=== PATIENT | female | born 1975 | race Two or more races ===

== ENCOUNTER 2017-09-25 12:53 | Inpatient (IN) | payer OTHER ==
[~2017-09-25] VITALS: Ht 152.4 cm; Wt 56.2 kg
--- NOTE | 2017-09-25 13:15 | NUR ---
42 years old female presents to er c/o ruq pain nausea vomiting.
[2017-09-25] MEDS ORDERED: IV NS 1000 ML 1,000 ML IV ONE (13:30)
[2017-09-25] MEDS ORDERED: ONDANSETRON IV *ER 4 MG/2 ML VIAL IV ONE (13:30)
[2017-09-25] MEDS ORDERED: PANTOPRAZOLE SODIUM IV 40 MG in IV DEXTROSE 5% 100 ML IV ONE (13:30)
[2017-09-25 13:58] LABS: BASOPHILS # (AUTO) 0.4 K/uL (0.0-8.0); BASOPHILS % (AUTO) 2.9 % (0.0-2.0); EOSINOPHILS % (AUTO) 0.1 % (0.0-7.0); HEMOGLOBIN 13.9 G/DL (12.0-16.0); LYMPHOCYTES # (AUTO) 1.5 K/UL (0.8-4.8); LYMPHOCYTES % (AUTO) 12.4 % (20.5-51.5); MEAN CORPUSCULAR HEMOGLOBIN 28.8 UUG (27.0-31.0); MEAN CORPUSCULAR HGB CONC 33 g/dL (32.0-37.0); MEAN CORPUSCULAR VOLUME 87.1 FL (81.0-99.0); MONOCYTES # (AUTO) 1.3 K/UL (0.1-1.30); MONOCYTES % (AUTO) 10.6 % (0.0-11.0); NEUTROPHILS # (AUTO) 9.2 K/UL (1.8-8.9); PLATELET COUNT (AUTO) 274 K/UL (150-450); RED BLOOD CELL COUNT(AUTO) 4.82 MIL/UL (4.2-5.4); WHITE BLOOD COUNT (AUTO) 12.4 K/UL (4.0-11.2)
[2017-09-25] MEDS ORDERED: METRONIDAZOLE 500 MG/NS 100 ML PIGGYBACK IV ONE (14:15)
[2017-09-25] MEDS ORDERED: CIPROFLOXACIN IV 400 MG in PREMIXED 1 EACH IV SCH (14:15)
--- NOTE | 2017-09-25 14:19 | NUR ---
pt admit to med-surg Dx acute cholecystitis, Alex GRIFFIN.
--- NOTE | 2017-09-25 14:21 | NUR ---
room 203 RUSTY Robledo.
[2017-09-25 14:34] LABS: CREATININE 0.8 mg/dL (0.6-1.3); POTASSIUM 3.6 mmol/L (3.5-5.1); TOTAL PROTEIN, SERUM 7.5 g/dL (6.4-8.2)
[2017-09-25] MEDS ORDERED: PANTOPRAZOLE SODIUM 40 MG VIAL ONE ×2 (14:43→14:45)
[2017-09-25] MEDS ORDERED: ONDANSETRON 4 MG/2 ML VIAL ONE (14:43)
[2017-09-25] MEDS ORDERED: METRONIDAZOLE 500 MG/NS 100ML 100 ML IV ONE (14:44)
--- NOTE | 2017-09-25 14:52 | NUR ---
called nurse Robledo for report charge nurse Lida replied nurse is at lunch.
[2017-09-25] MEDS ORDERED: HYDROCODONE/APAP 5-325MG TABLET PO PRN (15:30)
[2017-09-25] MEDS ORDERED: HYDROMORPHONE 1 MG/1 ML DISP.SYRIN IV PRN (15:30)
[2017-09-25] MEDS ORDERED: Z GUARD REMEDY PASTE 57 GM TUBE TOP PRN (15:30)
[2017-09-25] MEDS ORDERED: MAGNESIUM HYDROXIDE 30 ML LIQUID UDC PO PRN (15:30)
[2017-09-25] MEDS ORDERED: IV NS 1000 ML 1,000 ML IV PRN (15:30)
[2017-09-25] MEDS ORDERED: METRONIDAZOLE 500 MG/NS 100ML 500 MG in PREMIXED 1 EACH IV SCH (15:30)
--- NOTE | 2017-09-25 15:56 | NUR ---
report given to nurse Meena all questions answered stable for transfer to unit.
[2017-09-25] MEDS ORDERED: CIPROFLOXACIN LACTATE/D5W 400 MG/200 ML PIGGYBACK IV ONE (16:06)
--- NOTE | 2017-09-25 16:35 | NUR ---
RECEIVED PATIENT FROM ED A 42 YEARS OLD FEMALE WITH DX OF CHOLECYSTITIS PLACED INTO BED FIXED AND MADE COMFORTABLE PATIENT IS ALERT AND ORIENTED STATED PAIN IS MINIMAL AT THIS TIME.ORIENTED TO THE FACILITY PROTOCOL AND THAT SHE SHOULD HAVE NOTHING TO EAT OR DRINK ORDERED PROVIDED HER WITH LEMON SWABS ABD SHE EXPRESSED UNDERSTANDING.SHE WAS RECEIVED WITH IV FLAGYL IN PROGRESS FROM THE ED IV SITE RIGHT ANTECUBITAL IS PATENT WITH NO S/S OF INFILTERATION ON SITE PATIENT MADE COMFORTABLE AND WILL CONTINUE TO OBSERVE.
--- NOTE | 2017-09-25 17:43 | NUR ---
CALL RECEIVED FROM DR VILLAFANA STATED TO GET CONSCENT FROM THE PATIENT AND THAT HE WILL SEE HER TOMORROW MORNING BEFORE SURGERY BETWEEN 10-1100
[2017-09-25 18:03] VITALS: BP 107/67
--- NOTE | 2017-09-25 18:55 | NUR ---
PATIENT HAD INFORMED ME THAT AFTER THE CIPRO IN THE ED DEPT SHE HAD A SMALL AMOUNT OF RED AREAS ON HER RIGHT ARM AND WAS GIVEN BENADRYL SO I CALLED THE RN JEANIE LAMB WHO GAVE ME REPORT BECAUSE IT WAS NOT DOCUMENTED THAT PATIENT RECEIVED BENADRYL TO CONFIRM AND SHE STATED THAT YES SHE DID GIVE HER BENADRYL AND THAT THE REDNESS WAS VERY MINIMAL ONLY ON THE RIGHT ARM THE IV SITE.WILL ENDORSE AND WILL OBSERVE PATIENT TO SEE IF THIS IS A TRUE ALLERGIC REACTION.
[2017-09-25 19:00] VITALS: BP 103/58
[2017-09-25] MEDS ORDERED: diphenhydrAMINE 50 MG/1 ML VIAL IV ONE (19:00)
--- NOTE | 2017-09-25 19:01 | NUR ---
late entry pt c/o itch with cipro, redness at bedside benadryl 12.5 mg iv given with good effect at 1600.
--- NOTE | 2017-09-25 20:00 | NUR ---
RECEIVED IN BED A/OX4. P;AN OF CARE DISCUSSED, PT UNDERSTOOD. C/O SEVERE ABD PAIN 8/10 ON THE PAIN SCALE, WILL MEDICATE ORDER. NO N/V AT TTIS TIME.
[2017-09-25] MEDS: HYDROMORPHONE 4 MG/1 ML DISP.SYRIN IV PRN (20:52)
[2017-09-25] MEDS: METRONIDAZOLE 500 MG/NS 100ML 500 MG in PREMIXED 1 EACH IV SCH (22:00)
[2017-09-25] MEDS: CIPROFLOXACIN IV 400 MG in PREMIXED 1 EACH IV SCH (22:01)
[2017-09-25] MEDS: ONDANSETRON 4 MG/2 ML VIAL IV PRN (23:49)
[2017-09-26] VITALS (7 sets, daily range): BP systolic 97–111; BP diastolic 49–67
[2017-09-26] MEDS: METRONIDAZOLE 500 MG/NS 100ML 500 MG in PREMIXED 1 EACH IV SCH ×3 (06:54→22:09)
[2017-09-26] MEDS: HYDROMORPHONE 4 MG/1 ML DISP.SYRIN IV PRN ×3 (06:54→17:20)
[2017-09-26] MEDS ORDERED: HYDROMORPHONE 4 MG/1 ML DISP.SYRIN ONE (06:58)
[2017-09-26 07:00] LABS: BASOPHILS % (AUTO) 0.3 % (0.0-2.0); HEMATOCRIT 36.4 % (31.2-41.9); HEMOGLOBIN 12.4 g/dL (10.9-14.3); LYMPHOCYTES # (AUTO) 1.3 K/uL (20.0-40.0); LYMPHOCYTES % (AUTO) 12.8 % (20.5-51.5); MEAN CORPUSCULAR HEMOGLOBIN 29.8 uug (24.7-32.8); MEAN CORPUSCULAR HGB CONC 34 g/dL (32.3-35.6); MEAN CORPUSCULAR VOLUME 87.7 fL (75.5-95.3); MONOCYTES # (AUTO) 1.7 K/uL (2.0-10.0); MONOCYTES % (AUTO) 16.6 % (0.0-11.0); NEUTROPHILS # (AUTO) 7.2 K/uL (1.8-8.9); NEUTROPHILS % (AUTO) 70.3 % (38.5-71.5); PLATELET COUNT (AUTO) 232 K/uL (179-408); RED BLOOD CELL COUNT(AUTO) 4.15 MIL/uL (3.63-4.92); WHITE BLOOD COUNT (AUTO) 10.2 K/uL (3.8-11.8)
[2017-09-26] MEDS: PANTOPRAZOLE SODIUM 40 MG TABLET.DR PO SCH (07:00)
[2017-09-26 07:23] LABS: BILIRUBIN,TOTAL 3.2 mg/dL (0.2-1.0); CREATININE 0.6 mg/dL (0.6-1.3); MAGNESIUM 2.1 mg/dL (1.8-2.4); PHOSPHOROUS 2.8 mg/dL (2.5-4.9); POTASSIUM 3.8 mmol/L (3.5-5.1); TOTAL PROTEIN, SERUM 6.6 g/dL (6.4-8.2)
[2017-09-26 07:27] LABS: THYROID STIMULATING HORMONE 0.866 mIU/mL (0.358-3.740)
--- NOTE | 2017-09-26 07:30 | NUR ---
RECEIVED PATIENT AWAKE ALERT ORIENTED DENIES PAIN OR DISCOMFORTS AT THIS TIME.REMAIN NOTHING BY MOUTH ORDERED NO ADVERSE OR ALLERGIC REACTIONS NOTED ANTIBIOTICS ORDERED HER FAMILY IS AT THE BEDSIDE AT THIS TIME NOT IN DISTRESS.
[2017-09-26] MEDS: CIPROFLOXACIN IV 400 MG in PREMIXED 1 EACH IV SCH ×2 (08:35→20:28)
[2017-09-26] MEDS ORDERED: PANTOPRAZOLE SODIUM 40 MG VIAL IV SCH (09:00)
[2017-09-26] MEDS ORDERED: BUPIVACAINE/EPI PF 0.25% 30 ML VIAL ONE (09:28)
[2017-09-26] MEDS ORDERED: ROCURONIUM BROMIDE 50 MG/5 ML VIAL ONE (09:36)
[2017-09-26] MEDS ORDERED: HYDROMORPHONE 2 MG/1 ML DISP.SYRIN ONE (09:36)
[2017-09-26 09:41] LABS: BAND % (MANUAL) 2 % (0-10); LYMPHOCYTES % (MANUAL) 10 % (20-40); MONOCYTES % (MANUAL) 13 % (2-10); NEUTROPHILS % (MANUAL) 75 % (42-75)
--- NOTE | 2017-09-26 09:45 | NUR ---
PATIENT PICKED UP BY BED TO OPERATING ROOM ORDERED WITH HER AND MOTHER AT THE BEDSIDE AND FOLLOWING.
[2017-09-26] MEDS ORDERED: SUCCINYLCHOLINE CHLORIDE 200 MG/10 ML VIAL ONE (10:13)
[2017-09-26] MEDS ORDERED: SEVOFLURANE 250 ML BOTTLE IH ONE (12:08)
[2017-09-26] MEDS ORDERED: DEXAMETHASONE SOD PHOSPHATE 4 MG INJ IV ONE (12:08)
[2017-09-26] MEDS ORDERED: NEOSTIGMINE METHYLSULFATE 10 MG/10 ML VIAL IV ONE (12:08)
[2017-09-26] MEDS ORDERED: GLYCOPYRROLATE 0.2 MG/ML VIAL MC ONE (12:08)
[2017-09-26] MEDS ORDERED: PROPOFOL 200 MG/20 ML BOTTLE IV ONE (12:08)
[2017-09-26] MEDS ORDERED: IV NORMAL SALINE 1000 ML BAG IV ONE (12:08)
[2017-09-26] MEDS ORDERED: ONDANSETRON 4 MG/2 ML VIAL IV ONE (12:08)
[2017-09-26] MEDS ORDERED: LIDOCAINE HCL 2% 20 ML VIAL MC ONE (12:08)
[2017-09-26] MEDS ORDERED: KETOROLAC TROMETHAMINE 30 MG INJ IM ONE (12:12)
[2017-09-26] MEDS ORDERED: FENTANYL CITRATE 100 MCG/2 ML AMPUL ONE (12:28)
[2017-09-26] MEDS ORDERED: HYDROMORPHONE 1 MG/1 ML DISP.SYRIN ONE (13:06)
--- NOTE | 2017-09-26 13:25 | NUR ---
PATIENT RETURNED FROM OR AWAKE ALERT AND ORIENTED ON ROOM AIR WITH NO SHORTNESS OF BREATH AT THIS TIME.RECEIVED WITH IVF OF D5I/2 NS AT 75 ML/HR VIA THE RIGHT ANTECUBITAL WITH NO S/S OF INFILTERATION AT THIS TIME.ABDOMEN WITH 3 SCOPE SITES AND A MYKEL GRIFFIN SITE WITH GAUZE DRESSING WITH SOME SEROUS DRAINAGE AT THIS TIME.
--- NOTE | 2017-09-26 14:23 | NUR ---
CALLED AND SPOKE WITH DR VILLAFANA RE PATIENT IS COMPLAINING OF PAIN AND I AM UNABLE TO GIVE HER DUE TO FREQUENCY WITH NEW ORDERS AND NOTED.
[2017-09-26] MEDS ORDERED: MORPHINE SULFATE 2 MG/1 ML DISP.SYRIN IV PRN (14:30)
[2017-09-26] MEDS ORDERED: OXYCODONE/APAP 5-325 MG TABLET PO PRN (14:30)
[2017-09-26] MEDS ORDERED: MORPHINE SULFATE 4 MG/1 ML DISP.SYRIN IM PRN (14:30)
[2017-09-26] MEDS ORDERED: HYDROMORPHONE 4 MG/1 ML DISP.SYRIN IV PRN (14:45)
[2017-09-26] MEDS ORDERED: ZOLPIDEM 5 MG TABLET PO PRN (14:45)
--- NOTE | 2017-09-26 14:45 | NUR ---
PATIENT WAS MEDICATED WITH DILAUDID BECAUSE PER PHARMACY THE MORPHINE ORDERED BY DR VILLAFANA WAS CHANGED DUE TO NON AVAILABILITY OF MORPHINE
--- NOTE | 2017-09-26 18:10 | NUR ---
RESTING HAS NO APPETITE TO EAT BUT ORAL DRINKING JELLO ETC HAS BEEN ADEQUATE.
--- NOTE | 2017-09-26 18:25 | NUR ---
DRESSING TO CARLOS A SITE CHANGE SECONDARY TO BLOODY FLUID AND GAUZE WET.SECURED WITH TRANSPARENT DRESSING PATIENT MADE COMFORTABLE.
--- NOTE | 2017-09-26 19:45 | NUR ---
RECEIVED PATIENT AWAKE IN BED WITH FAMILY AT BEDSIDE. IV HEPLOCK NOTED TO RIGHT AC, INFILTRATED. REMOVED AND ARM ELEVATED ON PILLOW, WARM COMPRESS APPLIED TO AFFECTED AREA. PATIENT DENIES PAIN AT THIS TIME. CARLOS A INTACT. ON O2 2L NC SATING WELL. NO RESP. DISTRESS NOTED. DVT PUMPS IN PLACE. CALL LIGHT IN REACH. ALL NEEDS ATTENDED. WILL CONTINUE TO MONITOR.
[2017-09-26] MEDS: ONDANSETRON 4 MG/2 ML VIAL IV PRN (20:05)
--- NOTE | 2017-09-26 20:05 | NUR ---
NEW IV HEPLOCK STARTED TO LEFT FA. IVF INFUSING ORDERED. PATIENT C/O NAUSEA. GIVEN ZOFRAN 4MG IV PER METER TECHNICIAN. CALL LIGHT IN REACH. ALL NEEDS ATTENDED. WILL CONTINUE TO MONITOR.
--- NOTE | 2017-09-26 21:45 | NUR ---
PATIENT DOZING ON AND OFF IN BED. NO C/O NAUSEA AT THIS TIME. WILL CONTINUE TO MONITOR.
--- NOTE | 2017-09-27 | NUR ---
PATIENT ASLEEP. APPEARS TO BE RESTING COMFORTABLY. NO RESP. DISTRESS NOTED. CALL LIGHT IN REACH. ALL NEEDS ATTENDED. WILL CONTINUE TO MONITOR.
[2017-09-27] MEDS: POTASSIUM CHLORIDE 20 MEQ in IV D5 1/2 NS 1000 ML 1,000 ML IV PRN ×2 (01:30→17:23)
[2017-09-27 04:00] VITALS: BP 95/53
[2017-09-27] MEDS: ONDANSETRON 4 MG/2 ML VIAL IV PRN ×3 (04:37→17:41)
[2017-09-27] MEDS: HYDROMORPHONE 4 MG/1 ML DISP.SYRIN IV PRN ×4 (04:38→21:11)
--- NOTE | 2017-09-27 04:40 | NUR ---
PATIENT AWAKE IN BED. PATIENTS BLOOD PRESSURE 95/53. PATIENT C/O PAIN IN ABDOMEN. PATIENT GIVEN DILAUDID 0.5MG IV AND ZOFRAN 4MG IV PRN PER PRESS CLIPPER. IVF INFUSING WELL TO LEFT HAND. CALL LIGHT IN REACH. ALL NEEDS ATTENDED. WILL CONTINUE TO MONITOR.
[2017-09-27] MEDS: METRONIDAZOLE 500 MG/NS 100ML 500 MG in PREMIXED 1 EACH IV SCH ×3 (05:36→21:11)
[2017-09-27] MEDS: PANTOPRAZOLE SODIUM 40 MG TABLET.DR PO SCH (06:01)
[2017-09-27 06:26] LABS: BASOPHILS % (AUTO) 0.3 % (0.0-2.0); EOSINOPHILS % (AUTO) 0.1 % (0.0-7.0); HEMATOCRIT 32.1 % (31.2-41.9); HEMOGLOBIN 10.9 g/dL (10.9-14.3); LYMPHOCYTES # (AUTO) 1.7 K/uL (20.0-40.0); LYMPHOCYTES % (AUTO) 16.5 % (20.5-51.5); MEAN CORPUSCULAR HEMOGLOBIN 29.8 uug (24.7-32.8); MEAN CORPUSCULAR HGB CONC 34 g/dL (32.3-35.6); MEAN CORPUSCULAR VOLUME 87.9 fL (75.5-95.3); MONOCYTES # (AUTO) 1.1 K/uL (2.0-10.0); MONOCYTES % (AUTO) 10.6 % (0.0-11.0); NEUTROPHILS # (AUTO) 7.3 K/uL (1.8-8.9); NEUTROPHILS % (AUTO) 72.5 % (38.5-71.5); PLATELET COUNT (AUTO) 206 K/uL (179-408); RED BLOOD CELL COUNT(AUTO) 3.65 MIL/uL (3.63-4.92); WHITE BLOOD COUNT (AUTO) 10.1 K/uL (3.8-11.8)
[2017-09-27 06:52] LABS: BILIRUBIN,TOTAL 1.2 mg/dL (0.2-1.0); CREATININE 0.6 mg/dL (0.6-1.3); POTASSIUM 3.8 mmol/L (3.5-5.1); TOTAL PROTEIN, SERUM 6.1 g/dL (6.4-8.2)
--- NOTE | 2017-09-27 09:02 | NUR ---
CALL RECEIVED FROM DR VILLAFANA RE STATUS OF THE PATIENT INFORMED HIM THAT THE DRESSINGS WAS CHANGED RELATED TO DRAINAGE AND HE STATED TO CONTINUE TO CHANGE NEEDED AND THAT HE WILL BE HERE TO SEE THE PATIENT LATER IN THE DAY.PATIENT WAS MEDICATED WITH PAIN MEDICATIONS ORDERED AND HELPFUL.
[2017-09-27] MEDS: CIPROFLOXACIN IV 400 MG in PREMIXED 1 EACH IV SCH ×2 (09:16→20:35)
[2017-09-27 11:03] VITALS: BP 98/58
--- NOTE | 2017-09-27 12:20 | NUR ---
UP OUT OF BED ASSISTED WITH CLEAN UP IN THE BATHROOM AND ASSISTED WITH AMBULATING IN THE HALLWAY WITH SLOW STEADY GAIT WITH FAIR ENDURANCE.BACK TO BED AT THIS TIME.
[2017-09-27 15:05] VITALS: BP 103/55
--- NOTE | 2017-09-27 16:28 | NUR ---
patient seen and examined by dr hernandez with new orders and noted.
--- NOTE | 2017-09-27 18:53 | NUR ---
DRESSING CHANGED TO HER CARLOS A SITE WITH DRY DRESSING COVERED WITH TRANSPARENT TEGARDERM AND SECURED WITH PAPER TAPE PATIENT MADE COMFORTABLE FAMILY AT THE BEDSIDE AT THIS TIME WILL CONTINUE TO OBSERVENO ADVERSE OR ALLERGIC REACTIONS FROM ANTIBIOTICS ORDERED
[2017-09-27 19:10] VITALS: BP 113/73
--- NOTE | 2017-09-27 20:00 | NUR ---
RECEIVED PATIENT AWAKE IN BED WITH FAMILY AT BEDSIDE. PATIENT IS A/OX4. NO C/O PAIN AT THIS TIME, STATED DISCOMFORT BUT DENIES THE NEED FOR ANY PAIN MEDICATION AT THIS TIME. ON RA SATING WELL. NO RESP. DISTRESS NOTED. IVF INFUSING WELL TO LEFT HAND #22 GAUGE. CARLOS A SITE INTACT. SURGICAL INCISIONS X3 NOTED, DRESSINGS CLEAN, DRY AND INTACT. BILATERAL DVT PUMPS IN PLACE. CALL LIGHT IN REACH. ALL NEEDS ATTENDED. WILL CONTINUE TO MONITOR AND ASSESS.
--- NOTE | 2017-09-27 21:10 | NUR ---
PATIENT C/O PAIN IN ABDOMEN. GIVEN DILAUDID 0.5MG IV PER OIL PRODUCER. VS WNL. CALL LIGHT IN REACH. ALL NEEDS ATTENDED. WILL CONTINUE TO MONITOR AND ASSESS.
--- NOTE | 2017-09-27 21:40 | NUR ---
PATIENT ASLEEP. APPEARS TO BE RESTING COMFORTABLY. CALL LIGHT IN REACH. ALL NEEDS ATTENDED. WILL CONTINUE TO MONITOR AND ASSESS.
[2017-09-28 04:00] VITALS: BP 110/67
[2017-09-28] MEDS: METRONIDAZOLE 500 MG/NS 100ML 500 MG in PREMIXED 1 EACH IV SCH (05:11)
[2017-09-28] MEDS: ONDANSETRON 4 MG/2 ML VIAL IV PRN ×3 (05:38→23:45)
[2017-09-28] MEDS: HYDROMORPHONE 4 MG/1 ML DISP.SYRIN IV PRN ×3 (05:38→23:45)
[2017-09-28] MEDS: POTASSIUM CHLORIDE 20 MEQ in IV D5 1/2 NS 1000 ML 1,000 ML IV PRN ×2 (05:39→23:33)
--- NOTE | 2017-09-28 05:43 | NUR ---
PATIENT RESTING IN BED. C/O PAIN. GIVEN DILAUDID 0.5MG IV PRN AND ZOFRAN 4MG IV PRN PER PHYSIC[facility]. EMPTIED A TOTAL OF 95cc FROM CARLOS A FOR THE WHOLE NIGHT. DRESSINGS C/D/I. SLEPT WELL THROUGHOUT THE NIGHT. IVF INFUSING WELL ORDERED. ON RA SATING 100%. ALL VSS. AFEBRILE. CALL LIGHT IN REACH. ALL NEEDS ATTENDED. WILL CONTINUE TO MONITOR.
[2017-09-28] MEDS: PANTOPRAZOLE SODIUM 40 MG TABLET.DR PO SCH (06:33)
[2017-09-28 07:25] LABS: BILIRUBIN,TOTAL 0.7 mg/dL (0.2-1.0); CREATININE 0.7 mg/dL (0.6-1.3); POTASSIUM 4.2 mmol/L (3.5-5.1); TOTAL PROTEIN, SERUM 6.2 g/dL (6.4-8.2)
--- NOTE | 2017-09-28 08:15 | NUR ---
PATIENT IS AWAKE ALERT AND ORIENTED DENIES PAIN OR DISCOMFORTS AT THIS TIME.REMAIN ON IVF ORDERED AND IVATB WITH NO ADVERSE OR ALLERGIC REACTIONS AT TIME.REMAIN ON ROOM AIR WITH NO SHORTNESS OF BREATH CARLOS A REMAIN INTACT WITH GREENISH BROWN DRAINAGE WITH DRESSING INTACT AROUND THE CARLOS A SITE INCENTIVE SPIROMETER AND AMBULATION ENCOURAGED AND SHE EXPRESSED UNDERSTANDING.
[2017-09-28 08:27] LABS: BASOPHILS % (AUTO) 0.5 % (0.0-2.0); EOSINOPHILS # (AUTO) 0.1 K/uL (0.0-0.7); EOSINOPHILS % (AUTO) 0.8 % (0.0-7.0); HEMATOCRIT 33.7 % (37-47); LYMPHOCYTES # (AUTO) 1.5 K/UL (0.8-4.8); LYMPHOCYTES % (AUTO) 21.5 % (20.5-51.5); MEAN CORPUSCULAR HEMOGLOBIN 28.9 UUG (27.0-31.0); MEAN CORPUSCULAR HGB CONC 33 g/dL (32.0-37.0); MEAN CORPUSCULAR VOLUME 88.4 FL (81.0-99.0); MONOCYTES # (AUTO) 0.6 K/UL (0.1-1.30); MONOCYTES % (AUTO) 7.9 % (0.0-11.0); NEUTROPHILS % (AUTO) 69.3 % (38.5-71.5); PLATELET COUNT (AUTO) 288 K/UL (150-450); RED BLOOD CELL COUNT(AUTO) 3.81 MIL/UL (4.2-5.4); WHITE BLOOD COUNT (AUTO) 7.2 K/UL (4.0-11.2)
[2017-09-28] MEDS: CIPROFLOXACIN IV 400 MG in PREMIXED 1 EACH IV SCH (08:36)
--- NOTE | 2017-09-28 10:00 | NUR ---
PATIENT SEEN AND EXAMINED BY DR VILLAFANA NOTED HIS DOCUMENTATION OF GI CONSULTATION FOR THE PATIENT FOR POSSIBLE ERCP
[2017-09-28 11:29] VITALS: BP 107/66
--- NOTE | 2017-09-28 11:54 | NUR ---
IV SITE INFILTERATED RESTARTED TO HER RIGHT WRIST WITH ONE ATTEMPT AND CONTINUE WITH IVF ORDERED PATIENT TOLERATED PROCEDURE WELL NO ADVERSE OR ALLERGIC REACTIONS FROM ATB ORDERED.
[2017-09-28] MEDS: METRONIDAZOLE 500 MG TABLET PO SCH ×2 (15:10→22:48)
[2017-09-28 15:38] VITALS: BP 121/64
[2017-09-28 15:42] VITALS: BP 138/60
--- NOTE | 2017-09-28 15:57 | NUR ---
PATIENT HAS ONE EMESIS AND SEVERE PAIN MEDICATED WITH ZOFRAN AND DILAUDID ORDERED MADE COMFORTABLE.
--- NOTE | 2017-09-28 18:00 | NUR ---
RESTING AT THIS TIME FEELS COMFORTABLE WITH IVF ORDERED SHE IS AMBULATING IN HER ROOM BUT STATED DOES NOT FEEL LIKE GOING IN THE HALLWAY AT THIS TIME.WILL CONTINUE TO EDUCATE PATIENT ON THE IMPORTANCE OF WALKING AND USING THE INCENTIVE SPIROMETER AND SHE EXPRESSED UNDERSTANDING.
--- NOTE | 2017-09-28 18:41 | NUR ---
MYKEL GRIFFIN EMPTIED AND ITS 80 ML AND ITS YELLOWISH WITH SOME RED TINGED PATIENT EDUCATED ON MANAGEMENT AND EMPTYING OF THE MYKEL GRIFFIN AND THE USE OF INCENTIVE SPIROMETER AND SHE EXPRESSED UNDERSTANDING.
[2017-09-28 20:00] VITALS: BP 116/63
--- NOTE | 2017-09-28 20:00 | NUR ---
RECEIVED PATIENT AWAKE IN BED. A/O X4. NO C/O PAIN AT THIS TIME. ON RA SATING 98-100%. CARLOS A INTACT. DRESSINGS INTACT. IVF INFUSING WELL TO RIGHT AC #20 GAUGE. VSS. AFEBRILE. PATIENT ENCOURAGED TO AMBULATE IN HALLWAY. CALL LIGHT IN REACH. ALL NEEDS ATTENDED. WILL CONTINUE TO MONITOR.
--- NOTE | 2017-09-28 20:30 | NUR ---
PATIENT OOB AND AMBULATING IN HALLWAY.
[2017-09-28] MEDS: CIPROFLOXACIN HCL 250 MG TABLET PO SCH (20:52)
--- NOTE | 2017-09-28 23:30 | NUR ---
PATIENTS DRESSING AROUND CARLOS A SITE, SATURATED. CLEANED AREA AND APPLIED DRY, STERILE DRESSING. PATIENT C/O PAIN. GIVEN DILAUDID 0.5MG IV AND ZOFRAN 4MG IV PER RN. VS WNL. CALL LIGHT IN REACH. ALL NEEDS ATTENDED. WILL CONTINUE TO MONITOR
--- NOTE | 2017-09-29 01:00 | NUR ---
PATIENT ASLEEP IN BED. NO RESP. DISTRESS NOTED. NO S/S OF PAIN OR DISCOMFORT. CALL LIGHT IN REACH. ALL NEEDS ATTENDED.
[2017-09-29] MEDS: PANTOPRAZOLE SODIUM 40 MG TABLET.DR PO SCH (06:02)
[2017-09-29] MEDS: METRONIDAZOLE 500 MG TABLET PO SCH ×3 (06:02→21:48)
[2017-09-29 06:20] VITALS: BP 119/80
[2017-09-29] MEDS: OXYCODONE/APAP 5-325 MG TABLET PO PRN (06:25)
--- NOTE | 2017-09-29 06:25 | NUR ---
PATIENT AWAKE IN BED. C/O PAIN. PATIENT GIVEN PERCOCET 1 TAB PO PRN FOR PAIN. SLEPT AT INTERVALS. DRESSINGS C/D/I. IVF INFUSING WELL. CALL LIGHT IN REACH. ALL NEEDS ATTENDED. WILL CONTINUE TO MONITOR.
--- NOTE | 2017-09-29 07:25 | NUR ---
Received client in bed awake alert and oriented time 4. Able to express needs, ambulatory. Expresses concern over GP
[2017-09-29] MEDS: CIPROFLOXACIN HCL 250 MG TABLET PO SCH ×2 (08:17→21:48)
--- NOTE | 2017-09-29 09:40 | NUR ---
Report received.Pt remains awake,alert.C/o severe abdominal pain,nausea.Medicated with Zofran 4mg IV,Dilaudid 0.5 mg IV.Will continue to monitor.
[2017-09-29] MEDS: HYDROMORPHONE 4 MG/1 ML DISP.SYRIN IV PRN (09:52)
[2017-09-29] MEDS: ONDANSETRON 4 MG/2 ML VIAL IV PRN (09:52)
--- NOTE | 2017-09-29 11:00 | NUR ---
Seen,examined by .Updated on pt condition.
[2017-09-29 11:33] LABS: BILIRUBIN,DIRECT 0.3 mg/dL (0.0-0.2); BILIRUBIN,TOTAL 0.7 mg/dL (0.2-1.0); TOTAL PROTEIN, SERUM 6.5 g/dL (6.4-8.2)
[2017-09-29 12:00] VITALS: BP 114/72
--- NOTE | 2017-09-29 12:00 | NUR ---
Seen,examined by DESIGN PROJECT MANAGER for .New orders received.
--- NOTE | 2017-09-29 15:00 | NUR ---
Spoke with regarding pt is going for ERCP at 1830 today.Updated on pt condition.
[2017-09-29] MEDS ORDERED: NEOSTIGMINE METHYLSULFATE 10 MG/10 ML VIAL IV ONE (15:14)
[2017-09-29] MEDS ORDERED: LIDOCAINE HCL 2% 20 ML VIAL MC ONE (15:14)
[2017-09-29] MEDS ORDERED: IV NORMAL SALINE 1000 ML BAG IV ONE (15:14)
[2017-09-29] MEDS ORDERED: SEVOFLURANE 250 ML BOTTLE IH ONE (15:14)
[2017-09-29] MEDS ORDERED: PROPOFOL 200 MG/20 ML BOTTLE IV ONE (15:14)
[2017-09-29] MEDS ORDERED: ONDANSETRON 4 MG/2 ML VIAL IV ONE (15:14)
[2017-09-29] MEDS ORDERED: GLYCOPYRROLATE 0.2 MG/ML VIAL MC ONE (15:14)
[2017-09-29 16:06] VITALS: BP 104/60
[2017-09-29] MEDS ORDERED: IOHEXOL-240 MG , 50 ML VIAL IV ONE (18:19)
[2017-09-29] MEDS ORDERED: FENTANYL CITRATE 250 MCG/5 ML AMPUL ONE (18:56)
[2017-09-29] MEDS ORDERED: SUCCINYLCHOLINE CHLORIDE 200 MG/10 ML VIAL ONE (18:57)
[2017-09-29] MEDS ORDERED: MIDAZOLAM HCL 2 MG/2 ML VIAL ONE (18:57)
[2017-09-29] MEDS ORDERED: ROCURONIUM BROMIDE 50 MG/5 ML VIAL ONE (18:57)
[2017-09-29] MEDS ORDERED: INDOMETHACIN 50 MG SUPP.RECT RC ONE (19:17)
[2017-09-29] MEDS ORDERED: MORPHINE SULFATE 4 MG/1 ML DISP.SYRIN IV PRN (19:30)
--- NOTE | 2017-09-29 20:35 | NUR ---
PT RECEIVED BACK FROM ERCP PROCEDURE. A/OX3. AT BEDSIDE. V/S STABLE. IN NO ACUTE DISTRESS. C/O ABDOMINAL PAIN 08/01. WILL ADMIN PAIN MEDICATIONS ORDERED. IV INTACT AND PATENT. ON RA, TOLERATING WELL. ABDOMINAL BINDER IN PLACE. CARLOS A DRAIN INTACT AND PATENT. SAFETY MEASURES IMPLEMENTED. CALL LIGHT WITHIN REACH.
[2017-09-29 20:43] VITALS: BP 114/70
[2017-09-29] MEDS: MORPHINE SULFATE 4 MG/1 ML DISP.SYRIN IV PRN (21:45)
[2017-09-30] MEDS: MORPHINE SULFATE 4 MG/1 ML DISP.SYRIN IV PRN ×2 (03:47→06:14)
[2017-09-30] MEDS: ONDANSETRON 4 MG/2 ML VIAL IV PRN ×3 (03:53→21:32)
[2017-09-30] MEDS: OXYCODONE/APAP 5-325 MG TABLET PO PRN (04:23)
[2017-09-30] MEDS: METRONIDAZOLE 500 MG TABLET PO SCH ×3 (06:04→21:33)
[2017-09-30] MEDS: PANTOPRAZOLE SODIUM 40 MG TABLET.DR PO SCH (06:04)
--- NOTE | 2017-09-30 06:15 | NUR ---
END OF SHIFT NOTES. PT SLEPT INTERMITTENTLY THROUGHOUT SHIFT. IN STABLE CONDITION. IVF INFUSING. ON RA, TOLERATING WELL. PT C/O ABDOMINAL PAIN, ADMINISTERED PAIN MEDICATION ORDERED. CARLOS A DRAIN OUTPUT 75CC. INTACT AN PATENT. DRAINAGE EMPTIED. ABDOMINAL BINDER IN PLACE. SURGICAL SITE C/D/I. ALL NEEDS ATTENDED. SAFETY MAINTAINED. CALL LIGHT WITHIN REACH.
[2017-09-30 06:16] VITALS: BP 103/59
--- NOTE | 2017-09-30 06:40 | NUR ---
UNABLE TO CHART ON IV SPREADSHEET. IVF CHARTED ON OTHER INPUT. 800CC INPUT.
[2017-09-30] MEDS: CIPROFLOXACIN HCL 250 MG TABLET PO SCH ×2 (08:30→21:33)
[2017-09-30] MEDS ORDERED: HYDROMORPHONE 1 MG/1 ML DISP.SYRIN IV PRN (08:45)
--- NOTE | 2017-09-30 08:45 | NUR ---
PATIENT IS HAVING SO MUCH PAIN OFFERED TO GIVE HER MORPHINE ORDERED FOR HER BUT SHE STATED THAT THE MORPHINE LUCY NOT HELP HER SO I CALLED AND SPOKE WITH DR BANEGAS WITH ORDER TO GIVE HER DILAUDID ORDERS RECEIVED AND CARRIED OUT.
[2017-09-30] MEDS: HYDROMORPHONE 4 MG/1 ML DISP.SYRIN IV PRN ×3 (09:14→21:31)
[2017-09-30] MEDS: POTASSIUM CHLORIDE 20 MEQ in IV D5 1/2 NS 1000 ML 1,000 ML IV PRN ×2 (09:15→23:48)
--- NOTE | 2017-09-30 10:41 | NUR ---
PATIENT SEEN BY DR VILLAFANA WITH NEW ORDERS AND NOTED HE IS AWARE THAT PATIENT IS STILL IN SEVERE PAIN THIS TIME LEFT SIDE OF THE ABDOMEN AND LEFT SHOULDER.
[2017-09-30 11:35] VITALS: BP 103/70
[2017-09-30 12:09] LABS: BASOPHILS % (AUTO) 0.1 % (0.0-2.0); EOSINOPHILS % (AUTO) 0.1 % (0.0-7.0); HEMATOCRIT 36.1 % (31.2-41.9); HEMOGLOBIN 12.4 g/dL (10.9-14.3); LYMPHOCYTES % (AUTO) 8.5 % (20.5-51.5); MEAN CORPUSCULAR HEMOGLOBIN 30.1 uug (24.7-32.8); MEAN CORPUSCULAR HGB CONC 34 g/dL (32.3-35.6); MEAN CORPUSCULAR VOLUME 87.6 fL (75.5-95.3); MONOCYTES # (AUTO) 0.8 K/uL (2.0-10.0); MONOCYTES % (AUTO) 6.8 % (0.0-11.0); NEUTROPHILS # (AUTO) 10.2 K/uL (1.8-8.9); NEUTROPHILS % (AUTO) 84.5 % (38.5-71.5); PLATELET COUNT (AUTO) 321 K/uL (179-408); RED BLOOD CELL COUNT(AUTO) 4.12 MIL/uL (3.63-4.92); WHITE BLOOD COUNT (AUTO) 12.1 K/uL (3.8-11.8)
[2017-09-30 16:00] VITALS: BP 104/70
--- NOTE | 2017-09-30 17:50 | NUR ---
UP AND AMBULATORY IN THE HALLWAY WITH SLOW STEADY GAIT WITH IVF IN PROGRESS ORDERED WITH NO ADVERSE OR ALLERGIC REACTIONS AT THIS TIME.WILL CONTINUE TO OBSERVE.
--- NOTE | 2017-09-30 18:30 | NUR ---
DR MANZOOVS NOTE STATED TO ADVANCE TOLERATED DIET ADVANCED TO FULL LIQUIDS AND PATIENT NOTIFIED.
--- NOTE | 2017-09-30 19:30 | NUR ---
PT RECEIVED IN BED, AWAKE. FAMILY AT BEDSIDE. A/OX3. ABLE TO MAKE NEEDS KNOWN. V/S STABLE. IN NO ACUTE DISTRESS. PT C/O ABDOMINAL PAIN 08/01. IVF INFUSING. WILL ADMINISTER PAIN MEDICATION ORDERED, ALONG WITH ZOFRAN PER PT REQUEST DUE TO NAUSEA. ON RA, TOLERATING WELL. SAFETY MEASURES IMPLEMENTED. CALL LIGHT WITHIN REACH.
--- NOTE | 2017-09-30 19:35 | NUR ---
PT CARLOS A DRAIN INTACT AND PATENT. SURGICAL SITE C/D/I.
[2017-09-30 20:00] VITALS: BP 100/58
--- NOTE | 2017-10-01 | NUR ---
PT CARLOS A DRAINAGE SITE FOUND SOAKED WITH SEROUS FLUID. DRESSING CHANGED AND REINFORCED. WILL CONT TO MONITOR
--- NOTE | 2017-10-01 05:00 | NUR ---
PT SEEN WITH FEVER OF 101.4. WILL ADMIN ANTIPYRETIC ORDERED. WILL CONT TO MONITOR. PT ALSO REQUEST FOR PAIN MEDICATION FOR ABDOMINAL PAIN 08/01. WILL ADMIN PAIN MED ORDERED.
[2017-10-01] MEDS: METRONIDAZOLE 500 MG TABLET PO SCH ×2 (05:11→13:36)
[2017-10-01] MEDS: ONDANSETRON 4 MG/2 ML VIAL IV PRN (05:12)
[2017-10-01] MEDS: ACETAMINOPHEN 325 MG TABLET PO PRN (05:12)
[2017-10-01] MEDS: HYDROMORPHONE 4 MG/1 ML DISP.SYRIN IV PRN (05:12)
--- NOTE | 2017-10-01 05:35 | NUR ---
END OF SHIFT NOTES. PT SLEPT WELL THROUGHOUT SHIFT. IN STABLE CONDITION. IVF INFUSING. ON RA, TOLERATING WELL. PT GIVEN TYLENOL, WILL ENDORSE TO DAYSHIFT TO CONT TO MONITOR. PT C/O OF ABDOMINAL PAIN AND LEFT CHEST PAIN, 08/01. ADMINISTERED PAIN MEDICATION ORDERED. CONT TO HAVE NO BM. PRUNE JUICE GIVEN, PT STATES HAVE FLATUS. PT ENCOURAGED TO USE INCENTIVE SPIROMETER. CARLOS A DRAIN WITH 20CC OUT. TOLERATING FULL LIQUID DIET WELL. ALL NEEDS ATTENDED. SAFETY MAINTAINED. CALL LIGHT WITHIN REACH.
[2017-10-01] MEDS: PANTOPRAZOLE SODIUM 40 MG TABLET.DR PO SCH (06:15)
[2017-10-01] MEDS: OXYCODONE/APAP 5-325 MG TABLET PO PRN (06:16)
[2017-10-01 06:31] VITALS: BP 109/62
--- NOTE | 2017-10-01 08:30 | NUR ---
RECEIVED PATIENT IN BED AWAKE ALERT AND ORIENTED STILL C/O LEFT UPPER CHEST/SHOULDER PAIN IS PERSISTING STATED THAT SHE HAD SOME RELIEF BUT THE PAIN IS STILL THERE DENIES SHORTNESS OF BREATH AT THIS TIME.TOLERATING HER FULL LIQUIDS DIET AND WILL ADVANCE FOE LUNCH.
[2017-10-01] MEDS: CIPROFLOXACIN HCL 250 MG TABLET PO SCH (08:32)
--- NOTE | 2017-10-01 10:00 | NUR ---
PATIENT AMBULATED IN THE HALLWAY ACCOMPANIED BY HER MOTHER WITH SLOW STEADY GAIT.TEMP CHECKED AT THIS TIME AND ITS 98.[address] BANEGAS HERE TO SEE PATIENT WILL CHECK FOR NEW ORDERS.
--- NOTE | 2017-10-01 10:39 | NUR ---
ORDERS FOR LABS AND CHEST XRAYS RECEIVED FROM DR BANEGAS AND NOTED
[2017-10-01] MEDS ORDERED: MORPHINE SULFATE 4 MG/1 ML DISP.SYRIN IV PRN (10:45)
[2017-10-01 11:05] LABS: BASOPHILS % (AUTO) 0.2 % (0.0-2.0); EOSINOPHILS % (AUTO) 0.2 % (0.0-7.0); HEMATOCRIT 35.5 % (31.2-41.9); HEMOGLOBIN 11.8 g/dL (10.9-14.3); LYMPHOCYTES # (AUTO) 1.7 K/uL (20.0-40.0); LYMPHOCYTES % (AUTO) 9.2 % (20.5-51.5); MEAN CORPUSCULAR HEMOGLOBIN 29.3 uug (24.7-32.8); MEAN CORPUSCULAR HGB CONC 33 g/dL (32.3-35.6); MEAN CORPUSCULAR VOLUME 87.8 fL (75.5-95.3); MONOCYTES # (AUTO) 1.7 K/uL (2.0-10.0); MONOCYTES % (AUTO) 9.1 % (0.0-11.0); NEUTROPHILS # (AUTO) 14.7 K/uL (1.8-8.9); NEUTROPHILS % (AUTO) 81.3 % (38.5-71.5); PLATELET COUNT (AUTO) 315 K/uL (179-408); RED BLOOD CELL COUNT(AUTO) 4.04 MIL/uL (3.63-4.92); WHITE BLOOD COUNT (AUTO) 18.1 K/uL (3.8-11.8)
[2017-10-01 11:26] VITALS: BP 102/57
--- NOTE | 2017-10-01 11:40 | NUR ---
RECEIVED RESULT OF THE CXR ORDERED FROM THE RADIOLOGIST AND DR BANEGAS NOTIFIED WITH ORDERS
[2017-10-01] MEDS: POTASSIUM CHLORIDE 20 MEQ in IV D5 1/2 NS 1000 ML 1,000 ML IV PRN (12:47)
--- NOTE | 2017-10-01 15:00 | NUR ---
DR VILLAFANA WAS NOTIFIED RE RESULT OF THE KUB WITH NEW ORDERS AND NOTED.
--- NOTE | 2017-10-01 15:03 | NUR ---
CALLED DR FIGUEROA AND GAVE HIM THE RESULT OF THE KUB WITH ORDER TO DO A STAT CT ABDOMEN AND PELVIS AND NOTED PATIENT AWARE.
[2017-10-01] MEDS ORDERED: MISCELLANEOUS MED XX PRN (15:30)
[2017-10-01] MEDS ORDERED: HYDROMORPHONE 4 MG/1 ML DISP.SYRIN IV ONE (15:30)
[2017-10-01 16:08] VITALS: BP 100/54
[2017-10-01] MEDS ORDERED: NORMAL SALINE FLUSH 10 ML DISP.SYRIN ONE (16:14)
[2017-10-01] MEDS ORDERED: IOHEXOL 300MG/ML 100 ML INFUS..BTL ONE (16:15)
[2017-10-01] MEDS ORDERED: IV NORMAL SALINE 250 ML IV ONE (16:15)
--- NOTE | 2017-10-01 16:15 | NUR ---
DR FIGUEROA HERE TO SEE AND EXAMINE PATIENT WITH NEW ORDERS AND NOTED
--- NOTE | 2017-10-01 16:30 | NUR ---
PATIENT PICKED UP BY W/CHAIR TO THE RADIOLOGY DEPT FOR THE CT SCAN ORDERED
--- NOTE | 2017-10-01 16:59 | NUR ---
PATIENT RETURNED TO HER ROOM WITH CT COMPLETED ORDERED.
[2017-10-01] MEDS: METOCLOPRAMIDE HCL 10 MG/2 ML VIAL IV SCH ×2 (17:20→23:09)
--- NOTE | 2017-10-01 18:41 | NUR ---
RECEIVED RESULT OF THE CT ABDOMEN AND PELVIS AND CALLED IT TO DR FIGUEROA WITH NO NEW ORDERS AT THIS TIME. STATED TO ENCOURAGE PATIENT TO USE HER INCENTIVE SPIROMETER MUCH POSSIBLE.
--- NOTE | 2017-10-01 19:30 | NUR ---
PT RECEIVED IN BED, AWAKE. AT BEDSIDE. A/OX4. ABLE TO MAKE NEEDS KNOWN. V/S STABLE. IN NO ACUTE DISTRESS. NO C/O PAIN AT THIS TIME. PT HAS LOW GRADE FEVER. COOLING MEASURES INITIATED AT THIS TIME. BLANKETS REMOVED. ROOM COOLED AND ICE PACKS PLACED. IVF INFUSING. ON RA, TOLERATING WELL. CARLOS A DRAIN SITE C/D/I, DRAINAGE INTACT AND PATENT. PT ENCOURAGED TO USE INCENTIVE SPIROMETER. SAFETY MEASURES IMPLEMENTED. TRUDY LIGHT WITHIN REACH. PT NPO AT THIS THIS TIME.
[2017-10-01 20:04] VITALS: BP 104/59
[2017-10-01] MEDS: FENTANYL CITRATE 100 MCG/2 ML AMPUL IV PRN (21:48)
--- NOTE | 2017-10-01 22:40 | NUR ---
PT HAS TEMP OF 100. UNABLE TO GIVE PO TYLENOL. MD AWARE. ADMINISTERED TYLENOL RC PER MD ORDERS. WILL CONT TO MONITOR.
[2017-10-01] MEDS ORDERED: ACETAMINOPHEN 650 MG SUPP.RECT RC PRN (22:45)
[2017-10-01] MEDS ORDERED: ACETAMINOPHEN 650 MG SUPP.RECT RC ONE (22:51)
[2017-10-01] MEDS: PIPERACILLIN SODIUM/TAZOBACTAM 4.5 G in IV DEXTROSE 5% 50 ML IV SCH (22:57)
[2017-10-01] MEDS ORDERED: PIPERACILLIN/TAZO 4.5 GM VIAL IV ONE (22:59)
[2017-10-02] MEDS ORDERED: PIPERACILLIN/TAZO 4.5 GM VIAL IV ONE (05:12)
[2017-10-02] MEDS: POTASSIUM CHLORIDE 20 MEQ in IV D5 1/2 NS 1000 ML 1,000 ML IV PRN ×2 (05:23→22:07)
[2017-10-02] MEDS: METOCLOPRAMIDE HCL 10 MG/2 ML VIAL IV SCH ×4 (05:23→23:13)
[2017-10-02] MEDS: FENTANYL CITRATE 100 MCG/2 ML AMPUL IV PRN ×2 (05:24→09:28)
[2017-10-02] MEDS: PIPERACILLIN SODIUM/TAZOBACTAM 4.5 G in IV DEXTROSE 5% 50 ML IV SCH ×3 (05:24→22:07)
--- NOTE | 2017-10-02 05:40 | NUR ---
END OF SHIFT NOTES. PT SLEPT INTERMITTENTLY THROUGHOUT SHIFT. IN STABLE CONDITION. PT MORNING TEMP IS 99.3, COOLING MEASURES INITIATED. IV ABX INFUSED. IVF INFUSING. ON RA, TOLERATING WELL. PAIN MANAGED THROUGHOUT SHIFT. CARLOS A DRAIN WITH 10CC OUTPUT. CONT TO ENCOURAGE PT TO USE INCENTIVE SPIROMETER. NPO THROUGHOUT SHIFT. ALL NEEDS ATTENDED. SAFETY MAINTAINED. CALL LIGHT WITHIN REACH.
[2017-10-02] MEDS: PANTOPRAZOLE SODIUM 40 MG TABLET.DR PO SCH (06:00)
[2017-10-02 06:03] VITALS: BP 99/59
--- NOTE | 2017-10-02 08:00 | NUR ---
RECEIVED PATIENT IN BED AWAKE ALERT AND ORIENTED WITH IVF IN PROGRESS ORDERED WITH IVPB WITH NO S/S OF ADVERSE OR ALLERGIC REACTIONS AT THIS TIME CARLOS A WITH SMALL AMOUNT OF DRAINAGE AT THIS TIME PATIENT CONTINUED TO BE ENCOURAGED TO USE INCENTIVE SPIROMETER AND AMBULATION AND SHE EXPRESSED UNDERSTANDING.
[2017-10-02 08:43] LABS: BILIRUBIN,DIRECT 0.3 mg/dL (0.0-0.2); BILIRUBIN,TOTAL 0.8 mg/dL (0.2-1.0); TOTAL PROTEIN, SERUM 6.1 g/dL (6.4-8.2)
--- NOTE | 2017-10-02 09:30 | NUR ---
COMPLAINING C/O SEVERE PAIN LEFT CHEST AREA MEDICATED WITH FENTANYL ORDERED AND WILL OBSERVE.
[2017-10-02 09:59] LABS: BASOPHILS % (AUTO) 0.3 % (0.0-2.0); EOSINOPHILS # (AUTO) 0.1 K/uL (0.0-0.7); EOSINOPHILS % (AUTO) 0.7 % (0.0-7.0); HEMATOCRIT 33.1 % (31.2-41.9); HEMOGLOBIN 11.2 g/dL (10.9-14.3); LYMPHOCYTES # (AUTO) 1.1 K/uL (20.0-40.0); LYMPHOCYTES % (AUTO) 7.8 % (20.5-51.5); MEAN CORPUSCULAR HEMOGLOBIN 29.7 uug (24.7-32.8); MEAN CORPUSCULAR HGB CONC 34 g/dL (32.3-35.6); MEAN CORPUSCULAR VOLUME 87.9 fL (75.5-95.3); MONOCYTES # (AUTO) 1.3 K/uL (2.0-10.0); NEUTROPHILS # (AUTO) 11.9 K/uL (1.8-8.9); NEUTROPHILS % (AUTO) 82.2 % (38.5-71.5); PLATELET COUNT (AUTO) 330 K/uL (179-408); RED BLOOD CELL COUNT(AUTO) 3.76 MIL/uL (3.63-4.92); WHITE BLOOD COUNT (AUTO) 14.5 K/uL (3.8-11.8)
--- NOTE | 2017-10-02 10:28 | NUR ---
PATIENT SEEN AND EXAMINED BY DR VILLAFANA AND HE REOVED PATIENTS CARLOS A DRAIN AND STARTED HER ON SOFT DIET DRY DRESSING APPLIED INSTRUCTED BY DR VILLAFANA.
[2017-10-02 12:18] VITALS: BP 115/60
[2017-10-02 15:15] VITALS: BP 110/61
--- NOTE | 2017-10-02 16:39 | NUR ---
CALL RECEIVED FROM DR VILLAFANA RE [facility] WITH NO NEW ORDERS AT THIS TIME.
[2017-10-02] MEDS: OXYCODONE/APAP 5-325 MG TABLET PO PRN (17:45)
--- NOTE | 2017-10-02 18:27 | NUR ---
UP AND AMBULATING AT THIS TIME PATIENT IS COMFORTABLE PERCOCET WAS GIVEN ABOUT 1745 AND EFFECTIVE WILL CONTINUE TO OBSERVE.
[2017-10-02 20:22] VITALS: BP 104/65
[2017-10-03] MEDS: PIPERACILLIN SODIUM/TAZOBACTAM 4.5 G in IV DEXTROSE 5% 50 ML IV SCH ×2 (05:01→13:06)
[2017-10-03] MEDS: METOCLOPRAMIDE HCL 10 MG/2 ML VIAL IV SCH ×3 (05:01→12:00)
--- NOTE | 2017-10-03 05:10 | NUR ---
Patient refused Reglan.
[2017-10-03] MEDS: PANTOPRAZOLE SODIUM 40 MG TABLET.DR PO SCH (06:07)
[2017-10-03] MEDS: ACETAMINOPHEN 325 MG TABLET PO PRN (06:09)
--- NOTE | 2017-10-03 06:30 | NUR ---
Pt slept intermittently, in no acute distress. Pt c/o of slight discomfort, administered tylenol prn as ordered. Temp noted at 99.4F. Cooling measures done, encouraged fluids, heavy blankets removed. Will continue to monitor.
[2017-10-03 06:35] LABS: BASOPHILS % (AUTO) 0.3 % (0.0-2.0); EOSINOPHILS # (AUTO) 0.2 K/uL (0.0-0.7); EOSINOPHILS % (AUTO) 1.4 % (0.0-7.0); HEMATOCRIT 31.7 % (31.2-41.9); HEMOGLOBIN 10.5 g/dL (10.9-14.3); LYMPHOCYTES # (AUTO) 1.3 K/uL (20.0-40.0); MEAN CORPUSCULAR HEMOGLOBIN 29.2 uug (24.7-32.8); MEAN CORPUSCULAR HGB CONC 33 g/dL (32.3-35.6); MEAN CORPUSCULAR VOLUME 87.9 fL (75.5-95.3); MONOCYTES # (AUTO) 0.9 K/uL (2.0-10.0); MONOCYTES % (AUTO) 7.6 % (0.0-11.0); NEUTROPHILS # (AUTO) 9.7 K/uL (1.8-8.9); NEUTROPHILS % (AUTO) 79.7 % (38.5-71.5); PLATELET COUNT (AUTO) 365 K/uL (179-408); WHITE BLOOD COUNT (AUTO) 12.2 K/uL (3.8-11.8)
[2017-10-03 06:39] VITALS: BP 104/53
--- NOTE | 2017-10-03 09:30 | NUR ---
PATIENT SEEN AND EXAMINED BY DR VILLAFANA WITH OKAY TO DISCHARGE PATIENT HOME TODAY AND TO FOLLOW UP IN HIS OFFICE IN ONE WEEK PATIENT AWARE.
--- NOTE | 2017-10-03 10:30 | NUR ---
SANCHEZ HERE TO SEE PATIENT WITH ORDER TO DISCHARGE PATIENT HOME TODAY PATIENT STATED THAT HER WILL BE HERE AROUND 1400 TO PICK HER UP.
[2017-10-03 10:55] VITALS: BP 97/59
[2017-10-03] MEDS: OXYCODONE/APAP 5-325 MG TABLET PO PRN (13:16)
--- NOTE | 2017-10-03 13:16 | NUR ---
PATIENT STATED C/O PAIN MILD THOUGH MEDICATED WITH ONE PERCOCET MADE COMFORTABLE AND WILL OBSERVE.
--- NOTE | 2017-10-03 15:15 | NUR ---
PATIENT DISCHARGED PICKED UP BY HER TRE IN SATISFACTORY CONDITION DRESSING ON HER ABDOMEN CLEANSED AND CHANGE DOCUMENTED WITH PHOTOGRAPH RUPALI INTACT TO 3 OF HER SCOPE SITED SECURED WITH BAND AIDE HEPLOCK REMOVED AND PATIENT INSTRUCTED TO CALL DR VILLAFANA FOR A FOLLOW UP APPOINTMENT IN ONE WEEK AND SHE EXPRESSED UNDERSTANDING.
== END 2017-10-03 15:15 | disposition home or self-care (01) | DRG 853 ==
LOC: ER 12:57 → MED 16:25
PROVIDERS: ADMIT Nurse Practitioner Acute Care; ATTEND Nurse Practitioner Acute Care
PROC: 0FT44ZZ Resection of Gallbladder, Percutaneous Endoscopic Approach (ICD-10-PCS; principal; 2017-09-26 10:51)
PROC: 0F788DZ Dilation of Cystic Duct with Intraluminal Device, Via Natural or Artificial Opening Endoscopic (ICD-10-PCS; 2017-09-29)
DX: A41.9 Sepsis, unspecified organism (principal); K85.90 Acute pancreatitis without necrosis or infection, unspecified; K81.0 Acute cholecystitis; E87.1 Hypo-osmolality and hyponatremia; K83.8 Other specified diseases of biliary tract; J98.11 Atelectasis; E80.6 Other disorders of bilirubin metabolism; T81.89XA Other complications of procedures, not elsewhere classified, initial encounter; Y83.8 Other surgical procedures as the cause of abnormal reaction of the patient, or of later complication, without mention of misadventure at the time of the procedure; Y92.230 Patient room in hospital as the place of occurrence of the external cause
CPT/HCPCS: 36415; 43264; 70030-TC; 71010; 74000; 76000; 83605; 83690; 83735; 84100; 84443; 84703; 85025; 85610; 93005; A4663; C1876; C9113; J0330; J0744; J1100; J1170; J1885; J2250; J2270; J2405; J2543; J2710; J2765; J3010; J3480; J3490; J7030; J7050; J7060; Q9966; Q9967

== ENCOUNTER 2017-10-21 20:33 | Emergency (ER) | payer OTHER ==
[~2017-10-21] VITALS: Ht 152.4 cm; Wt 52.2 kg
[2017-10-21] MEDS ORDERED: IV NORMAL SALINE 1000 ML BAG IV ONE (21:15)
[2017-10-21] MEDS ORDERED: MORPHINE SULFATE 4 MG/1 ML DISP.SYRIN IV ONE (21:30)
[2017-10-21] MEDS ORDERED: MORPHINE SULFATE 4 MG/1 ML DISP.SYRIN ONE (22:00)
[2017-10-21 22:10] LABS: BASOPHILS # (AUTO) 0.2 K/uL (0.0-8.0); BASOPHILS % (AUTO) 2.5 % (0.0-2.0); EOSINOPHILS # (AUTO) 0.4 K/uL (0.0-0.7); EOSINOPHILS % (AUTO) 6.3 % (0.0-7.0); HEMATOCRIT 35.6 % (31.2-41.9); HEMOGLOBIN 12.1 g/dL (10.9-14.3); LYMPHOCYTES # (AUTO) 2.8 K/uL (20.0-40.0); LYMPHOCYTES % (AUTO) 43.8 % (20.5-51.5); MEAN CORPUSCULAR HEMOGLOBIN 29.4 uug (24.7-32.8); MEAN CORPUSCULAR HGB CONC 34 g/dL (32.3-35.6); MEAN CORPUSCULAR VOLUME 86.1 fL (75.5-95.3); MONOCYTES # (AUTO) 0.6 K/uL (2.0-10.0); MONOCYTES % (AUTO) 8.8 % (0.0-11.0); NEUTROPHILS # (AUTO) 2.5 K/uL (1.8-8.9); NEUTROPHILS % (AUTO) 38.6 % (38.5-71.5); PLATELET COUNT (AUTO) 318 K/uL (179-408); RED BLOOD CELL COUNT(AUTO) 4.13 MIL/uL (3.63-4.92); WHITE BLOOD COUNT (AUTO) 6.4 K/uL (3.8-11.8)
[2017-10-21 22:14] LABS: CREATININE 0.6 mg/dL (0.6-1.3); POTASSIUM 3.7 mmol/L (3.5-5.1)
[2017-10-21 22:19] LABS: BILIRUBIN,DIRECT 0.1 mg/dL (0.0-0.2); BILIRUBIN,TOTAL 0.3 mg/dL (0.2-1.0); TOTAL PROTEIN, SERUM 7.2 g/dL (6.4-8.2)
--- NOTE | 2017-10-21 22:34 | NUR ---
CONSENT FOR IV CONTRAST SIGNED, PT ALSO SIGNED WAIVER. PT IN ROUTE TO CT SCAN VIA [facility].
[2017-10-21] MEDS ORDERED: NORMAL SALINE FLUSH 10 ML DISP.SYRIN ONE (22:37)
[2017-10-21] MEDS ORDERED: IOHEXOL 300MG/ML 100 ML INFUS..BTL ONE (22:37)
[2017-10-21 23:38] LABS: *URINE HCG, QUAL NEGATIVE (NEGATIVE)
[2017-10-21 23:40] LABS: *BILIRUBIN,URIN NEGATIVE (NEGATIVE); *BLOOD, URINE NEGATIVE (NEGATIVE); *CLARITY,URINE CLEAR (CLEAR); *COLOR,URINE STRAW (YELLOW); *KETONES,URINE NEGATIVE (NEGATIVE); *PROTEIN,URINE NEGATIVE (NEGATIVE); *UROBILINOGEN,URINE 0.2 E.U./dl (NORMAL); LEUKOCYTE ESTERASE ,URINE NEGATIVE (NEGATIVE); NITRITE, URINE NEGATIVE (NEGATIVE); UGLUCOSE NEGATIVE (NEGATIVE)
[2017-10-21] MEDS ORDERED: DICYCLOMINE HCL 10 MG CAPSULE PO STA (23:50)
[2017-10-21 23:57] LABS: BACTERIA,URINE FEW /HPF (NONE SEEN); RBC,URINE 0-3 /HPF (0-3); SQUAMOUS EPITHELIAL CELL,UR FEW /HPF (NONE SEEN); WBC,URINE 0-3 /HPF (0-3); YEAST,URINE FEW /HPF (NONE SEEN)
[2017-10-22] MEDS ORDERED: MAG HYDROX/AL HYDROX/SIMETH 30 ML LIQUID UDC PO ONE
[2017-10-22] MEDS ORDERED: LIDOCAINE VISCUS 2% 15 ML UDC MM ONE
[2017-10-22] MEDS: FAMOTIDINE. 20 MG/2 ML VIAL IV ONE (00:08)
[2017-10-22] MEDS ORDERED: LIDOCAINE VISCUS 2% 15 ML UDC ONE (00:17)
[2017-10-22] MEDS ORDERED: MAG HYDROX/AL HYDROX/SIMETH 30 ML LIQUID UDC ONE (00:17)
[2017-10-22] MEDS ORDERED: FAMOTIDINE. 20 MG/2 ML VIAL IV ONE (00:18)
[2017-10-22] MEDS ORDERED: DICYCLOMINE HCL 10 MG/5 ML UDC LIQ ONE (00:18)
[2017-10-22] MEDS ORDERED: ONDANSETRON IV *ER 4 MG/2 ML VIAL IV ONE (00:30)
--- NOTE | 2017-10-22 00:36 | NUR ---
MSE COMPLETED, PT HAD IC=V D/C'D INTACT, ACI/RX GIVEN. PT GOT DRESSED AND AMBULATED W/O DIFF/TOKK ALL BELONGINGS.
[2017-10-22 00:38] VITALS: BP 110/65
[2017-10-22] MEDS ORDERED: ONDANSETRON 4 MG/2 ML VIAL ONE (00:47)
== END 2017-10-22 00:39 | disposition home or self-care (01) ==
LOC: ER 20:36
DX: R10.9 Unspecified abdominal pain (principal); R11.0 Nausea; Z90.49 Acquired absence of other specified parts of digestive tract
CPT/HCPCS: 36415; 71010; 74177; 80048; 80076; 81001; 83605; 83690; 84703; 85025; 85730; 86140; 93005; 96361; 96374 ×2; 96375; 99285; A4663; J2270; J2405; J3490 ×2; J7030; Q9967 ×2